=== PATIENT | male | born 1990 | race Caucasian/White ===

== ENCOUNTER 2024-10-20 10:18 | Emergency (ER) | payer OTHER, SELFPAY ==
[2024-10-20 10:18] VITALS: BMI 23.1
[2024-10-20 10:24] VITALS: BP 120/74; PULSE 83; RESP 18; TEMP 36.7; O2SAT 95
--- NOTE | 2024-10-20 10:32 | XR_ITS ---
Examination: Knee, left , 3 views Technique: Knee AP, lateral, oblique 3 views Date and time of exam: October 20, 2024 1038 hours INDICATIONS: Lifting injury to the knee 2 days ago, knee pain. FINDINGS: No acute fracture No dislocation No foreign body IMPRESSION: No acute fracture
[2024-10-20] MEDS: IBUPROFEN TAB 400 MG TABLET 800 MG PO (11:32)
--- NOTE | 2024-10-20 11:50 | PD.EDLOWEX ---
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 Limitations: no limitations Related Data Previous Rx's ?Medication ?Instructions ?Recorded ibuprofen 800 mg tablet 800 mg PO TID PRN pain #30 tabs 10/20/24 Allergies Allergy/AdvReac Type Severity Reaction Status Date / Time No Known Allergies Allergy Verified 10/20/24 10:20 Review of Systems Review of Systems Systems Reviewed: All systems reviewed, normal except as documented Constitutional Constitutional: Reports system reviewed and no additional complaints, except as documented, Denies fever(s) and Denies headache(s) Eyes Eyes: Reports system reviewed and no additional complaints, except as documented and Denies blurry vision ENT Ears, Nose, Mouth, and Throat: Reports system reviewed and no additional complaints, except as documented, Denies headache(s), Denies nasal congestion and Denies nasal discharge Cardiovascular Cardiovascular: Reports system reviewed and no additional complaints, except as documented, Denies chest pain and Denies dyspnea Respiratory Respiratory: Reports system reviewed and no additional complaints, except as documented, Denies chest congestion, Denies cough and Denies dyspnea Gastrointestinal Gastrointestinal: Reports system reviewed and no additional complaints, except as documented and Denies abdominal pain Musculoskeletal Musculoskeletal: Reports system reviewed and no additional complaints, except as documented, Reports abnormal gait, Reports arthralgias, Denies deformity, Denies numbness, Reports stiffness and Denies tingling Integumentary/Breasts Skin/Breast: Reports system reviewed and no additional complaints, except as documented and Denies rash Neurologic Neurologic: Reports system reviewed and no additional complaints, except as documented, Reports as per HPI, Reports abnormal gait, Denies headache(s), Denies numbness and Denies tingling Past Medical History Social History SMOKING STATUS: Former smoker ED Exam General Limitations: Present no limitations General appearance: Present alert and in no apparent distress Head Head exam: Present atraumatic Eye Eye exam: Present normal appearance, PERRL and EOMI ENT ENT exam: Present normal exam, normal oropharynx and mucous membranes moist Neck Neck exam: Present normal inspection, full ROM and trachea midline Chest Chest inspection: Present normal inspection and symmetric chest wall rise Respiratory Respiratory exam: Present normal lung sounds bilaterally Cardiovascular Cardiovascular exam: Present regular rate, normal rhythm and normal heart sounds Abdominal Exam Abdominal exam: Present soft and normal bowel sounds Extremities Exam Extremities exam: Present full ROM, tenderness (Left knee pain), normal capillary refill and joint swelling; Absent pedal edema or calf tenderness Back Exam Back exam: Present normal inspection and full ROM Neurological Exam Neurological exam: Present alert, oriented X3 and CN II-XII intact Psychiatric Psychiatric exam: Present normal affect and normal mood Skin Skin exam: Present warm, dry, intact and normal color Course Quality Measures none Orders Category Date Time Status Crutches .NOW Care 10/20/24 10:32 Active live wrap [Splint / Immobilizer] STAT Care 10/20/24 10:32 Active XR knee LT 3V Stat Exams 10/20/24 10:32 Completed Ibuprofen Tab [Motrin Tab] Med 10/20/24 10:32 Discontinued 800 mg PO X1 ONE Vital Signs Vital signs: Vital Signs Temperature 98.0 F 10/20/24 10:24 Pulse Rate 83 10/20/24 10:24 Respiratory Rate 18 10/20/24 10:24 Blood Pressure 120/74 10/20/24 10:24 Pulse Oximetry (%) 95 10/20/24 10:24 Oxygen Delivery Method Room Air 10/20/24 10:24 O2 saturation 95% room air with normal limits Extremity Injury, Lower MDM Narrative MDM Narrative:: 34-year-old male with no significant medical problems presents to the emergency room today for complaint of left knee pain patient ports pain worse with movement patient reports that 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 On exam patient well-appearing patient does not appear ill or toxic no acute distress On exam patient has tenderness of left knee patient reports pain worse with movement Imaging of the left knee obtained no acute fracture dislocation noted Patient given Live wrap and crutches Patient given above copy of his x-ray report told to follow-up with Workmen's Compensation doctor Workmen's Compensation papers completed For emergent concerns patient instructed to return immediately Patient data External records reviewed:: [facility] previous records Clinical information provided by:: patient Social determinants that could affect healthcare access:: none Patient has the following chronic illnesses:: None How is presenting disease/condition affected by chronic disease/condition?: no chronic disease Evaluation data The following diagnostics were reviewed and interpreted by me:: radiology exam(s) Lab and/or radiology exams considered but not ordered:: Radiology obtained Interpretation Summary: Reviewed by me Medications / Prescriptions Medications or Prescriptions considered but not ordered:: Given Medication administrations:: Medication Administration History Discontinued Medications Ibuprofen (Ibuprofen Tab 400 Mg Tablet) 800 mg PO X1 ONE Stop: 10/20/24 10:33 Last Admin: 10/20/24 11:32 Dose: 800 mg Documented By: MF Given Consultations Consultation(s) initiated? (list below): No Diagnosis Extremity Injury, Lower Differential Diagnosis: acute internal derangement of knee and other Most likely diagnosis given after review of the tests above:: Knee sprain Admission Indicated Admission indicated?: not indicated Admission Request Was there a request for admission?: No Disposition Plan Disposition Plan: Discharge Discharge Attestation Discharge Attestation: The patient and all family members were given an opportunity to ask questions and understood the discharge instructions. Discharge instructions specifically effects, indications for sooner follow up or return to the emergency department, and the expected course of current diagnosis. Patient condition: Stable Discharge Plan Plan Patient Disposition: HOME (Self Care) Discharge Disposition comment: Stable Prescriptions/Referrals Prescriptions/Med Rec: New ibuprofen 800 mg tablet 800 mg PO TID PRN (Reason: pain) Qty: 30 0RF Referrals: No Primary/Family,Physician [Primary Care Provider] - 10/21/24 Problem List Clinical Impression: Acute internal derangement of knee, Work related injury Patient/Caregiver Discharge Instructions Education Materials: How Your Knee Works Additional Instructions: Please follow-up with Workmen's Compensation doctor request MRI for worsening symptoms return immediately Print Language: Arabic Stand Alone Forms: Maribeth Award Info., Patient Portal Info Letter PA/SECURITY INCIDENT HANDLER Supervising Physician PA/SECURITY INCIDENT HANDLER Supervising Physician: Dr. Carter
== END 2024-10-20 12:16 | disposition home or self-care (01) ==
PROVIDERS: Emergency Provider Emergency Medicine
DX: M23.92 Unspecified internal derangement of left knee (principal); S89.92XA Unspecified injury of left lower leg, initial encounter; X50.1XXA Overexertion from prolonged static or awkward postures, initial encounter; Y93.01 Activity, walking, marching and hiking; Y92.89 Other specified places as the place of occurrence of the external cause; Y99.0 Civilian activity done for income or pay
CPT/HCPCS: 73562; 99283; A9270